=== PATIENT | female | born 1975 | race Caucasian/White ===

== ENCOUNTER 2019-03-15 10:46 | Emergency (ER) | payer BC ==
[~2019-03-15] VITALS: Ht 165.1 cm; Wt 83.9 kg
[2019-03-15] MEDS ORDERED: PAXIL30 MG (12:22)
== END 2019-03-15 14:48 | disposition home or self-care (01) ==
LOC: ER 10:46
DX: S93.491A Sprain of other ligament of right ankle, initial encounter (principal); W01.198A Fall on same level from slipping, tripping and stumbling with subsequent striking against other object, initial encounter; Y93.89 Activity, other specified; Y92.512 Supermarket, store or market as the place of occurrence of the external cause; Y99.8 Other external cause status